=== PATIENT | female | born 1940 | race Caucasian/White ===

== ENCOUNTER 2024-09-08 09:22 | Emergency (ER) | payer OTHER ==
[~2024-09-08] VITALS: Ht 167.6 cm; Wt 96.2 kg
[2024-09-08] MEDS ORDERED: RX Prepack 6 Tabs Oxycodone 5mg UD ONE (12:05)
== END 2024-09-08 14:06 | disposition home or self-care (01) ==
LOC: ER 09:22
DX: S42.211A Unspecified displaced fracture of surgical neck of right humerus, initial encounter for closed fracture (principal); S42.251A Displaced fracture of greater tuberosity of right humerus, initial encounter for closed fracture; W18.30XA Fall on same level, unspecified, initial encounter; Y93.01 Activity, walking, marching and hiking; Y92.59 Other trade areas as the place of occurrence of the external cause
CPT/HCPCS: 71100; 73060; 73200; 99284-25; A9270